=== PATIENT | female | born 1955 | race Caucasian/White ===

== ENCOUNTER 2016-05-23 12:11 | Inpatient (IN) | payer MEDICARE, OTHER ==
[~2016-05-23] VITALS: Ht 160 cm; Wt 49.6 kg
[~2016-05-23 12:11] MED LIST: ARICEPT5 MG GT; ARICEPT5 MG PO; CEFTIN250 MG/5 M GT; CLARITIN 5M5 MG/5 ML GT; DULCOLAX10 MG PR; FLAGYL500 MG PO; INVANZ 1 GM VIAL1 GM IM; JEVITY 1.2 CA1000 ML GT; JEVITY 1.5 CA1500 ML GT; JUVEN PACKET1 EACH GT; KEFLEX SUS250 MG/5 M GT; KEPPRA 100100 MG/1 M GT; KLONOPIN TAB 00.5 MG GT; KLONOPIN TAB 00.5 MG PO; KLONOPIN0.5 MG PO; LEVAQUIN TAB 5500 MG PO; MIRALAX17 GM GT; NAMENDA10 MG GT; NAMENDA5 MG PO; PROTONIX40 M1 GT; ROBINUL TAB 1 MG1 MG GT; SENEXON-S TABL1 EACH GT; SENOKOT-S TABL1 EACH GT; SEROQUEL25 MG GT; TYLENOL 325MG325 MG GT; ZANTAC 150150 MG/10 GT; ZOSYN 4.5 GRAM4.5 GM IV
[2016-05-23 18:24] LABS: HEMOGLOBIN 13.1 gm/dl (12.3-15.3); RED BLOOD COUNT 4.39 M/UL (4.00-5.10); WHITE BLOOD COUNT 6.7 K/UL (4.5-11.0)
[2016-05-23 18:40] LABS: BUN/CREATININE RATIO 30 (0-10)
[2016-05-25 04:20] LABS: HEMOGLOBIN 10.5 gm/dl (12.3-15.3); RED BLOOD COUNT 3.57 M/UL (4.00-5.10); WHITE BLOOD COUNT 5.4 K/UL (4.5-11.0)
[2016-05-25 04:49] LABS: BUN/CREATININE RATIO 53 (0-10)
[2016-05-26 04:15] LABS: HEMOGLOBIN 10.7 gm/dl (12.3-15.3); RED BLOOD COUNT 3.62 M/UL (4.00-5.10); WHITE BLOOD COUNT 5.9 K/UL (4.5-11.0)
[2016-05-26 04:32] LABS: BUN/CREATININE RATIO 80 (0-10)
[2016-05-27 04:47] LABS: HEMOGLOBIN 11.1 gm/dl (12.3-15.3); RED BLOOD COUNT 3.75 M/UL (4.00-5.10); WHITE BLOOD COUNT 5.5 K/UL (4.5-11.0)
[2016-05-27 05:01] LABS: BUN/CREATININE RATIO 90 (0-10)
[2016-05-28 04:27] LABS: HEMOGLOBIN 11.1 gm/dl (12.3-15.3); RED BLOOD COUNT 3.74 M/UL (4.00-5.10)
[2016-05-28 04:46] LABS: BUN/CREATININE RATIO 60 (0-10)
[2016-05-30 10:39] LABS: BUN/CREATININE RATIO 73 (0-10)
[2016-05-31 05:52] LABS: BUN/CREATININE RATIO 87 (0-10)
[2016-06-01 05:36] LABS: BUN/CREATININE RATIO 97 (0-10)
[2016-06-02 07:20] LABS: BUN/CREATININE RATIO 145 (0-10)
[2016-09-19] MEDS ORDERED: LEVAQUIN250 MG GT (15:43)
[2016-09-19] MEDS ORDERED: REGLAN5 MG GT (15:44)
[2016-11-25] MEDS ORDERED: CIPRO500 MG/5 M GT (11:11)
[2016-11-25] MEDS ORDERED: PROMOD 946 ML BT1 EA GT (11:14)
== END 2016-06-02 14:57 | disposition home health service (06) | DRG 602 ==
LOC: ER1 12:11 → MED SURG 4 20:32 → ZEROF 20:32 → MED SURG 4 22:43
PROVIDERS: Emergency Medicine; Internal Medicine; Internal Medicine Infectious Disease; ADMIT Internal Medicine
DX: L03.211 Cellulitis of face (principal); R53.2 Functional quadriplegia; L89.814 Pressure ulcer of head, stage 4; A69.20 Lyme disease, unspecified; R47.01 Aphasia; L03.213 Periorbital cellulitis; G31.89 Other specified degenerative diseases of nervous system; F02.80 Dementia in other diseases classified elsewhere, unspecified severity, without behavioral disturbance, psychotic disturbance, mood disturbance, and anxiety; G40.909 Epilepsy, unspecified, not intractable, without status epilepticus; F41.9 Anxiety disorder, unspecified; I10 Essential (primary) hypertension; E78.5 Hyperlipidemia, unspecified; Z74.01 Bed confinement status; M24.522 Contracture, left elbow; M24.521 Contracture, right elbow; M24.562 Contracture, left knee; M24.561 Contracture, right knee; M24.552 Contracture, left hip; M24.551 Contracture, right hip; Z93.1 Gastrostomy status; Z79.899 Other long term (current) drug therapy; Z87.19 Personal history of other diseases of the digestive system; Z87.01 Personal history of pneumonia (recurrent)
CPT/HCPCS: 36415; 70486; 71010; 80048; 80053; 80202; 83605; 83735; 83880; 85025; 85027; 86140; 87040; 87070; 87205; 96365; 96366; 99285; J2185; J3370; J7070

== ENCOUNTER 2016-06-17 12:46 | Emergency (ER) | payer MEDICARE, OTHER ==
[2016-09-19] MEDS ORDERED: LEVAQUIN250 MG GT (15:43)
[2016-09-19] MEDS ORDERED: REGLAN5 MG GT (15:44)
[2016-11-25] MEDS ORDERED: CIPRO500 MG/5 M GT (11:11)
[2016-11-25] MEDS ORDERED: PROMOD 946 ML BT1 EA GT (11:14)
== END 2016-06-17 20:10 | disposition home or self-care (01) ==
LOC: ER1 12:46
DX: R05 Cough (principal); Z88.0 Allergy status to penicillin; Z88.1 Allergy status to other antibiotic agents
CPT/HCPCS: 71010; 99283

== ENCOUNTER 2016-07-24 15:53 | Emergency (ER) | payer MEDICARE, OTHER ==
[2016-07-24 17:24] LABS: HEMOGLOBIN 14.1 gm/dl (12.3-15.3); RED BLOOD COUNT 4.57 M/UL (4.00-5.10); WHITE BLOOD COUNT 9.7 K/UL (4.5-11.0)
[2016-07-24 18:21] LABS: BUN/CREATININE RATIO 40 (0-10)
[2016-09-19] MEDS ORDERED: LEVAQUIN250 MG GT (15:43)
[2016-09-19] MEDS ORDERED: REGLAN5 MG GT (15:44)
[2016-11-25] MEDS ORDERED: CIPRO500 MG/5 M GT (11:11)
[2016-11-25] MEDS ORDERED: PROMOD 946 ML BT1 EA GT (11:14)
== END 2016-07-24 20:05 | disposition home or self-care (01) ==
LOC: ER1 15:53
PROVIDERS: Preventive Medicine Occupational Medicine
DX: R11.2 Nausea with vomiting, unspecified (principal); Z87.891 Personal history of nicotine dependence; Z90.49 Acquired absence of other specified parts of digestive tract
CPT/HCPCS: 36415; 71010; 80053; 81001; 82150; 83605; 83690; 85025; 87040; 87077; 87086; 87186; 96365; 99284; J2405; J2543; J7050

== ENCOUNTER 2016-08-02 12:03 | Inpatient (IN) | payer MEDICARE, OTHER ==
[~2016-08-02] VITALS: Ht 160 cm; Wt 49.9 kg
[2016-08-02 15:23] LABS: BUN/CREATININE RATIO 25 (0-10)
[2016-08-02 15:27] LABS: HEMOGLOBIN 11.8 gm/dl (12.3-15.3); RED BLOOD COUNT 4.02 M/UL (4.00-5.10); WHITE BLOOD COUNT 7.1 K/UL (4.5-11.0)
[2016-08-03] MEDS ORDERED: CEFUROXIME500 MG GT (00:27)
[2016-08-03] MEDS ORDERED: REGLAN5 MG GT (00:30)
[2016-08-03] MEDS ORDERED: SENNOSIDES-DOC1 EACH GT (00:30)
[2016-08-03] MEDS ORDERED: TIZANIDINE HCL4 MG GT (00:33)
[2016-08-03 04:05] LABS: HEMOGLOBIN 11.4 gm/dl (12.3-15.3); RED BLOOD COUNT 3.93 M/UL (4.00-5.10); WHITE BLOOD COUNT 8.4 K/UL (4.5-11.0)
[2016-08-03 04:24] LABS: BUN/CREATININE RATIO 43 (0-10)
[2016-08-04 06:10] LABS: HEMOGLOBIN 10.2 gm/dl (12.3-15.3)
[2016-08-04 06:25] LABS: RED BLOOD COUNT 3.53 M/UL (4.00-5.10); WHITE BLOOD COUNT 5.4 K/UL (4.5-11.0)
[2016-08-04 06:27] LABS: BUN/CREATININE RATIO 47 (0-10)
[2016-08-06 04:52] LABS: HEMOGLOBIN 10.5 gm/dl (12.3-15.3); RED BLOOD COUNT 3.65 M/UL (4.00-5.10); WHITE BLOOD COUNT 4.3 K/UL (4.5-11.0)
[2016-08-06 05:15] LABS: BUN/CREATININE RATIO 33 (0-10)
[2016-08-07 04:19] LABS: HEMOGLOBIN 10.7 gm/dl (12.3-15.3); RED BLOOD COUNT 3.71 M/UL (4.00-5.10)
[2016-08-07 04:43] LABS: BUN/CREATININE RATIO 33 (0-10)
[2016-08-09] MEDS ORDERED: MIRALAX17 GM GT (10:31)
[2016-08-09] MEDS ORDERED: PROTONIX40 MG GT (10:32)
[2016-09-19] MEDS ORDERED: LEVAQUIN250 MG GT (15:43)
[2016-09-19] MEDS ORDERED: REGLAN5 MG GT (15:44)
[2016-11-25] MEDS ORDERED: CIPRO500 MG/5 M GT (11:11)
[2016-11-25] MEDS ORDERED: PROMOD 946 ML BT1 EA GT (11:14)
== END 2016-08-09 13:40 | disposition home or self-care (01) | DRG 689 ==
LOC: ER1 12:03 → ZEROF 18:32 → MED SURG 4 23:23
PROVIDERS: Emergency Medicine; Internal Medicine; ADMIT Family Medicine
PROC: 3E0G76Z Introduction of Nutritional Substance into Upper GI, Via Natural or Artificial Opening (ICD-10-PCS; principal; 2016-08-03)
DX: N39.0 Urinary tract infection, site not specified (principal); R53.2 Functional quadriplegia; R47.01 Aphasia; A69.22 Other neurologic disorders in Lyme disease; B96.5 Pseudomonas (aeruginosa) (mallei) (pseudomallei) as the cause of diseases classified elsewhere; Z16.30 Resistance to unspecified antimicrobial drugs; R11.2 Nausea with vomiting, unspecified; K59.00 Constipation, unspecified; F03.90 Unspecified dementia, unspecified severity, without behavioral disturbance, psychotic disturbance, mood disturbance, and anxiety; R03.0 Elevated blood-pressure reading, without diagnosis of hypertension; G40.909 Epilepsy, unspecified, not intractable, without status epilepticus; R05 Cough; D64.9 Anemia, unspecified; Z93.1 Gastrostomy status; Z74.01 Bed confinement status; Z86.69 Personal history of other diseases of the nervous system and sense organs; Z87.440 Personal history of urinary (tract) infections; Z79.899 Other long term (current) drug therapy
CPT/HCPCS: 36415; 51701; 70450; 71010; 74250; 80048; 80053; 81001; 83735; 84484; 85025; 85027; 87040; 87077; 87086; 87186; 96374; 99285; G0378; J0713; J1335; J7050

== ENCOUNTER 2016-09-06 14:49 | Inpatient (IN) | payer MEDICARE, OTHER ==
[~2016-09-06] VITALS: Ht 160 cm; Wt 59.0 kg
[~2016-09-06 14:49] MED LIST changes: +CEFUROXIME500 MG GT; +PROTONIX40 MG GT; +REGLAN5 MG GT; +SENNOSIDES-DOC1 EACH GT; +TIZANIDINE HCL4 MG GT
[2016-09-06 15:48] LABS: HEMOGLOBIN 11.9 gm/dl (12.3-15.3); RED BLOOD COUNT 4.06 M/UL (4.00-5.10); WHITE BLOOD COUNT 7.8 K/UL (4.5-11.0)
[2016-09-06 16:23] LABS: BUN/CREATININE RATIO 30 (0-10)
[2016-09-07 07:48] LABS: HEMOGLOBIN 10.5 gm/dl (12.3-15.3)
[2016-09-07 07:49] LABS: RED BLOOD COUNT 3.55 M/UL (4.00-5.10); WHITE BLOOD COUNT 5.4 K/UL (4.5-11.0)
[2016-09-07 08:31] LABS: BUN/CREATININE RATIO 47 (0-10)
[2016-09-08 05:31] LABS: HEMOGLOBIN 10.1 gm/dl (12.3-15.3); RED BLOOD COUNT 3.46 M/UL (4.00-5.10); WHITE BLOOD COUNT 4.1 K/UL (4.5-11.0)
[2016-09-08 05:50] LABS: BUN/CREATININE RATIO 40 (0-10)
[2016-09-09 04:35] LABS: BUN/CREATININE RATIO 43 (0-10)
[2016-09-09] MEDS ORDERED: INVANZ1 GM IV (16:53)
[2016-09-09] MEDS ORDERED: JEVITY 1.2 CA1000 ML GT (16:56)
--- NOTE | 2016-09-09 17:33 | NUR ---
PICC INSERTION ATTEMPTED X2 STICKS. 1ST ATTEMPT TO RIGHT CEPHALIC VEIN WITH RESISTANCE MET AND INABILITY TO ADVANCE CATHETER PAST APPROXIMATELY 25CM SKY. 2ND ATTEMPT TO RIGHT BASILIC WITH INABILITY TO ADVANCE PICC CATHETER PAST APPROXIMATELY 12CM DUE TO RESISTANCE. NO OTHER VEIN ABLE TO BE VISUALIZED WITH ULTRASOUND FOR POSSIBLE INSERTION SITE.
[2016-09-10 04:49] LABS: BUN/CREATININE RATIO 57 (0-10)
[2016-09-19] MEDS ORDERED: LEVAQUIN250 MG GT (15:43)
[2016-09-19] MEDS ORDERED: REGLAN5 MG GT (15:44)
[2016-11-25] MEDS ORDERED: CIPRO500 MG/5 M GT (11:11)
[2016-11-25] MEDS ORDERED: PROMOD 946 ML BT1 EA GT (11:14)
== END 2016-09-10 13:00 | disposition home health service (06) | DRG 602 ==
LOC: ER1 14:49 → ZEROF 19:19 → MED SURG 4 19:19
PROVIDERS: Emergency Medicine; ADMIT Internal Medicine
DX: L03.211 Cellulitis of face (principal); R53.2 Functional quadriplegia; N39.0 Urinary tract infection, site not specified; J98.11 Atelectasis; B96.20 Unspecified Escherichia coli [E. coli] as the cause of diseases classified elsewhere; G31.89 Other specified degenerative diseases of nervous system; G40.909 Epilepsy, unspecified, not intractable, without status epilepticus; K21.9 Gastro-esophageal reflux disease without esophagitis; F03.90 Unspecified dementia, unspecified severity, without behavioral disturbance, psychotic disturbance, mood disturbance, and anxiety; Z87.440 Personal history of urinary (tract) infections; Z74.01 Bed confinement status; Z93.1 Gastrostomy status; Z79.899 Other long term (current) drug therapy; Z90.49 Acquired absence of other specified parts of digestive tract; Z98.890 Other specified postprocedural states
CPT/HCPCS: 36415; 70450; 70486; 71010; 80048; 80053; 80202; 81001; 83540; 83550; 83605; 83735; 83880; 84443; 84484; 85025; 85027; 85610; 85730; 87040; 87070; 87077; 87086; 87186; 87205; 96374; 96375; 99285; J1335; J1650; J2543; J3370; J7050; J7070